=== PATIENT | male | born 1960 | race Caucasian/White ===

== ENCOUNTER → 2023-12-12 11:50 | Outpatient (RCR) | payer MEDICARE, OTHER, SELFPAY ==
[2020-07-01 14:28] VITALS: BP 92/54; PULSE 68; RESP 12; TEMP 36.7; O2SAT 98; BMI 22.8
--- NOTE | 2020-07-01 14:34 | PM.HEMONCPN ---
Medical Summary - Medical Summary Date of Service: 07/01/20 Chief complaint: None Interval History Interval history: This is a 59-year-old male referred for evaluation of thrombocytopenia/pancytopenia. He has multiple medical problems including liver cirrhosis, splenomegaly. Diagnosis of chronic thrombocytopenia with platelet counts ranging from 20-30 K over the years. He carries a diagnosis of ITP, no history of platelet or blood transfusion. No history of receiving steroids. Diagnosed with non alcoholic steatohepatitis and liver cirrhosis, denies history of infectious hepatitis. He has a history of coronary artery disease and possible CVA, he has been on long-term aspirin. He denies any bruising or overt bleeding. His daughter thinks he must have had a previous EGD and colonoscopy. All his care thus far has been at [facility]. He has had significant weight loss since his recent hospitalization. Admitted to [facility] for hepatic encephalopathy with elevated ammonia levels. FOR[facility] Medical History: Medical History (Last Updated 07/01/20 @ 08:30 by Doretha Sales) Anoxic brain injury CAD (coronary artery disease) Coagulopathy Diabetes Elevated alkaline phosphatase level HLD (hyperlipidemia) Hyponatremia Lactic acidosis Metabolic encephalopathy Nonalcoholic steatohepatitis Portal hypertension Seizure disorder Thrombocytopenia Family History: Family History (Last Updated 07/01/20 @ 14:33 by Doretha Sales) Mother Cancer Sister Diabetes Brother Diabetes Brother Diabetes Surgical History: Surgical History (Last Updated 07/01/20 @ 08:30 by Doretha Sales) Hx of CABG Social History: Social History (Last Updated 07/01/20 @ 14:33 by Doretha Sales) Alcohol History: Alcohol intake: former Alcohol History Details: Alcohol intake frequency: does not drink Tobacco History: Smoking Status: Never smoker Substance Use History: Use of substances other than those prescribed or required for medical reasons: No Smoking status: Never smoker Home Medications and Allergies Home Medications Medication Instructions Recorded Confirmed Type aspirin 1 tab PO DAILY 07/01/20 07/01/20 History cholecalciferol (vitamin D3) 1 cap PO DAILY 07/01/20 07/01/20 History ferrous sulfate 1 tab PO DAILY 07/01/20 07/01/20 History furosemide 1 tab PO TID 07/01/20 07/01/20 History icosapent ethyl [Vascepa] 2 cap PO BID 07/01/20 07/01/20 History insulin glargine [Basaglar KwikPen 90 unit SUBCUT DAILY 07/01/20 07/01/20 History U-100 Insulin] insulin glargine [Lantus U-100 50 unit SUBCUT QPM 07/01/20 07/01/20 History Insulin] lactulose 10 g PO Q4-6H 07/01/20 07/01/20 History levetiracetam 1 tab PO BID 07/01/20 07/01/20 History nadolol 1 tab PO DAILY 07/01/20 07/01/20 History pantoprazole 1 tab PO DAILY 07/01/20 07/01/20 History rifaximin [Xifaxan] 550 mg PO BID 07/01/20 07/01/20 History rosuvastatin 1 tab PO DAILY 07/01/20 07/01/20 History spironolactone 50 tab PO TID 07/01/20 07/01/20 History Allergies Allergy/AdvReac Type Severity Reaction Status Date / Time No Known Allergies Allergy Verified 07/01/20 14:33 Exam Vital signs: Vital Signs Temp 98.0 F 07/01/20 14:28 Pulse 68 07/01/20 14:28 Resp 12 07/01/20 14:28 BP 92/54 L 07/01/20 14:28 Pulse Ox 98 07/01/20 14:28 Intake & Output 06/30/20 07/01/20 07/01/20 18:59 06:59 18:59 Other: Weight 80.9 kg Weight in Grams 53034 Weight 80.9 kg Body Mass Index 22.8 Data - Labs CBC & Chem 7: 07/01/20 14:44 07/01/20 14:44 Progress Note: A/P - Time Spent With Patient Total time spent is greater than 50% in coordination of care (as documented) at patient's floor/unit and/or counseling patient:
[2020-07-01 14:59] LABS: Hemoglobin 11.4 g/dl (14.0-18.0); Imm Gran Abs Auto 0.01 X10*3/uL (0.00-0.03); Imm Gran Pct Auto 0.3 % (0.0-0.4); MANUAL DIFF FLAG SCAN; Mean Platelet Volume 10.2 fL (9.4-12.4); PLT CLUMP 1; SCAN SMEAR FLAG 1
[2020-07-01 15:01] LABS: Basophils Percent Auto 0.3 % (0-2); Eosinophils Absolute Auto 0.1 X10*3/uL (0.0-0.4); Hematocrit 33.3 % (42-52); Lymphocytes Absolute Auto 0.5 X10*3/uL (1.2-4.9); Lymphocytes Percent Auto 11.7 % (20-40); Mean Corpuscular HGB Conc 34.2 g/dl (31.0-36.0); Mean Corpuscular Hemoglobin 32.8 pg (27.0-33.0); Mean Corpuscular Volume 95.7 fL (80-98); Monocytes Absolute Auto 0.6 X10*3/uL (0.1-1.2); Monocytes Percent Auto 15.2 % (2-11); Neutrophils Absolute Auto 2.8 X10*3/uL (2.0-8.3); Neutrophils Percent Auto 70.5 % (45-73); Red Blood Count 3.48 X10*6/uL (4.60-5.80); Red Cell Distribution Width 20.4 % (11.0-16.0); Retic HGB Equivalent 37.5 pg (30.0-35.0); Reticulocyte Percent 2.8 % (0.5-1.8); Reticulocytes Absolute 0.097 X10*6/uL (0.026-0.095); White Blood Count 3.9 X10*3/uL (4.8-10.8)
[2020-07-01 15:04] LABS: Fibrinogen 354 MG/DL (259-690); INTERNATIONAL NORM RATIO 1.6 (0.9-1.1); Prothrombin Time 18.7 SEC (10.8-13.0)
[2020-07-01 15:07] LABS: Partial Thromboplastin Time 37.3 SEC (24.1-38.0)
[2020-07-01 15:18] LABS: Platelet Count 39 X10*3/uL (160-400); SLIDE REVIEW VERIFIED
--- NOTE | 2020-07-01 15:25 | PM.HEMONCCN ---
Subjective - Subjective Chief complaint: None reported Consult date: 07/01/20 Requesting Physician: Dr. Margaret Corrales Primary Care Provider: Margaret Corrales MD HPI - Consult Narrative Reason for consult: Thrombocytopenia Narrative: This is a 59-year-old male referred for evaluation of thrombocytopenia/pancytopenia. He has multiple medical problems including liver cirrhosis, splenomegaly. Diagnosis of chronic thrombocytopenia with platelet counts ranging from 20-30 K over the years. He carries a diagnosis of ITP, no history of platelet or blood transfusion. No history of receiving steroids. Diagnosed with non alcoholic steatohepatitis and liver cirrhosis, denies history of infectious hepatitis. He has a history of coronary artery disease and possible CVA, he has been on long-term aspirin. He denies any bruising or overt bleeding. His daughter thinks he must have had a previous EGD and colonoscopy. All his care thus far has been at [facility]. He has had significant weight loss since his recent hospitalization. Admitted to [facility] for hepatic encephalopathy with elevated ammonia levels. Review of Systems - Constitutional Reports fatigue, Reports lack of energy, Reports malaise, Reports weakness, Reports weight loss - Cardiovascular Denies chest pain - Respiratory Denies cough, Reports dyspnea - Gastrointestinal Denies coffee ground vomit, Reports constipation, Denies cramping, Denies nausea, Denies vomiting Oncology Screenings - ECOG Performance Status ECOG Performance Status: 3 [facility] Medical History: Medical History (Last Updated 07/01/20 @ 08:30 by Doretha Sales) Anoxic brain injury CAD (coronary artery disease) Coagulopathy Diabetes Elevated alkaline phosphatase level HLD (hyperlipidemia) Hyponatremia Lactic acidosis Metabolic encephalopathy Nonalcoholic steatohepatitis Portal hypertension Seizure disorder Thrombocytopenia Family History: Family History (Last Updated 07/01/20 @ 14:33 by Doretha Sales) Mother Cancer Sister Diabetes Brother Diabetes Brother Diabetes Surgical History: Surgical History (Last Updated 07/01/20 @ 08:30 by Doretha Sales) Hx of CABG Social History: Social History (Last Updated 07/01/20 @ 14:33 by Doretha Sales) Alcohol History: Alcohol intake: former Alcohol History Details: Alcohol intake frequency: does not drink Tobacco History: Smoking Status: Never smoker Substance Use History: Use of substances other than those prescribed or required for medical reasons: No Smoking status: Never smoker Home Medications and Allergies Home Medications Medication Instructions Recorded Confirmed Type aspirin 1 tab PO DAILY 07/01/20 07/01/20 History cholecalciferol (vitamin D3) 1 cap PO DAILY 07/01/20 07/01/20 History ferrous sulfate 1 tab PO DAILY 07/01/20 07/01/20 History furosemide 1 tab PO TID 07/01/20 07/01/20 History icosapent ethyl [Vascepa] 2 cap PO BID 07/01/20 07/01/20 History insulin glargine [Basaglar KwikPen 90 unit SUBCUT DAILY 07/01/20 07/01/20 History U-100 Insulin] insulin glargine [Lantus U-100 50 unit SUBCUT QPM 07/01/20 07/01/20 History Insulin] lactulose 10 g PO Q4-6H 07/01/20 07/01/20 History levetiracetam 1 tab PO BID 07/01/20 07/01/20 History nadolol 1 tab PO DAILY 07/01/20 07/01/20 History pantoprazole 1 tab PO DAILY 07/01/20 07/01/20 History rifaximin [Xifaxan] 550 mg PO BID 07/01/20 07/01/20 History rosuvastatin 1 tab PO DAILY 07/01/20 07/01/20 History spironolactone 50 tab PO TID 07/01/20 07/01/20 History Allergies Allergy/AdvReac Type Severity Reaction Status Date / Time No Known Allergies Allergy Verified 07/01/20 14:33 Physical Exam Vital signs: Vital Signs Temp 98.0 F 07/01/20 14:28 Pulse 68 07/01/20 14:28 Resp 12 07/01/20 14:28 BP 92/54 L 07/01/20 14:28 Pulse Ox 98 07/01/20 14:28 Intake & Output 06/30/20 07/01/20 07/01/20 18:59 06:59 18:59 Other: Weight 80.9 kg [place] Weight in Grams 82271 Weight 80.9 kg - Constitutional Present: thin, chronically ill appearing - Routine HEENT Exam Head: Present: normal inspection Eye: Present: EOMI, PERRL - Routine Neck Exam Present: supple. Absent: lymphadenopathy - Routine Respiratory Exam Present: CTAB - Routine Cardiovascular Exam Cardiovascular: Present: RRR, S1, S2 - Routine Abdominal Exam Present: distended, soft - Routine Extremities Exam Present: normal inspection. Absent: pedal edema - Routine Neurological Exam Present: alert, oriented X3 Hem/Onc Consult Result - Labs CBC & Chem 7: 07/01/20 14:44 07/01/20 14:44 Labs: Short CBC 07/01/20 Range/Units 14:44 WBC 3.9 L (4.8-10.8) X10*3/uL Hgb 11.4 L (14.0-18.0) g/dl Hct 33.3 L (42-52) % Plt Count 39 L (160-400) X10*3/uL Assessment and Plan (1) Thrombocytopenia Status: Chronic 1. This is a 59-year-old male with longstanding liver cirrhosis, splenomegaly and thrombocytopenia referred for hematological management. All his care has been at [facility], he carries a diagnosis of non alcoholic steatohepatitis that led to liver cirrhosis. He has had a recent admission for hepatic encephalopathy and he is in a short-term care facility. Blood work today shows some improvement in his platelet counts which have been below 50k recently. He carries a diagnosis of ITP as well. Further hematological workup has been submitted today. Keppra can sometimes be associated with pancytopenia from bone marrow suppression. Primary bone marrow disorders such as lymphoma, plasma cell dyscrasia is also in the differential diagnosis. Hematinic deficiencies will be ruled out. He is on oral iron supplementation. Although he is on baby aspirin, he reports no skin bruising. He has mild elevation in INR but normal PTT and fibrinogen levels. Further recommendations to follow, all this was explained to his daughter who is the main historian. Follow-up in 8 weeks.
[2020-07-01 15:45] LABS: Alanine Aminotransferase 59 U/L (0-40); Albumin Level 2.8 g/dL (3.5-5.0); Alkaline Phosphatase 221 U/L (39-117); Anion Gap 11 (12-20); Aspartate Amino Transferase 55 U/L (5-37); Bilirubin Total 2.1 mg/dL (0.0-1.0); Blood Urea Nitrogen 13 mg/dL (9-16); Calcium 8.3 mg/dL (8.4-10.2); Carbon Dioxide 31 mmol/L (22-29); Chloride 90 mmol/L (96-108); Creatinine Clr Calc Pharmacy 56.1; Erythrocyte Sedimentation Rate 23 MM/HR (0-15); Estimated Glomerular Filt Rate 44; Glucose Random 417 mg/dL (60-115); Iron 102 mcg/dL (45-160); Lactate Dehydrogenase 259 U/L (118-273); Percent Iron Saturation 49 % (15-50); Potassium 3.3 mmol/L (3.3-5.1); Sodium 129 mmol/L (135-145); Total Iron Binding Capacity 209 mcg/dL (228-428); Total Protein 6.7 g/dL (6.5-8.0); Unsaturated Iron Binding 107 ug/dL
--- NOTE | 2020-07-01 15:51 | MHC.HEMONC ---
Received call from chemistry dept, blood glucose level 417. Dr Garcia notified no new orders received. Pt and daughter called and notified of glucose level of 417. Daughter states she will make sure father takes his insulin when they get home.
[2020-07-01 15:59] LABS: Folate 11.8 ng/mL (> or = 4.0); Vitamin B12 1023 pg/mL (200-900)
[2020-07-04 14:56] LABS: IgA 636 mg/dL (47-310); IgG 2136 mg/dL (600-1640); IgM 202 mg/dL (50-300)
[2020-07-04 23:17] LABS: Anti Nuclear Antibody Screen POSITIVE (NEGATIVE); Anti Nuclear Antibody Titer 1:40 titer
[2020-07-05 13:56] LABS: Prot Elec - Albumin 2.9 g/dL (3.8-4.8); Prot Elec - Alpha1 0.3 g/dL (0.2-0.3); Prot Elec - Alpha2 0.4 g/dL (0.5-0.9); Prot Elec - Beta 1 0.4 g/dL (0.4-0.6); Prot Elec - Beta 2 0.5 g/dL (0.2-0.5); Prot Elec - Gamma 1.9 g/dL (0.8-1.7); Prot Elec - Total Protein 6.4 g/dL (6.1-8.1)
== END | disposition home or self-care (01) ==
LOC: HO.ONC 07-01 14:14
PROVIDERS: PCP Internal Medicine; Visit Provider Internal Medicine
DX: D69.6 Thrombocytopenia, unspecified (principal); K74.60 Unspecified cirrhosis of liver; R16.1 Splenomegaly, not elsewhere classified; R79.1 Abnormal coagulation profile; Z79.82 Long term (current) use of aspirin; Z79.899 Other long term (current) drug therapy
CPT/HCPCS: 36415; 80053; 82607; 82746; 82784; 83540; 83615; 84155; 84165; 85025; 85045; 85384; 85610; 85652; 85730; 86038; 86039; 86334; 99204